=== PATIENT | female | born 2005 | race Caucasian/White ===

== ENCOUNTER 2025-01-11 18:02 | Emergency (ER) | payer OTHER ==
[~2025-01-11] VITALS: Ht 152.4 cm; Wt 66.0 kg
[2025-01-11 18:18] VITALS: O2SAT 98
[2025-01-11 19:52] LABS: BASOPHILS % 0.8 % (0.0-2.0); EOSINOPHILS % 2.6 % (0.0-5.0); HEMATOCRIT. 39.3 % (36.0-48.0); HEMOGLOBIN. 12.9 g/dL (12.0-16.0); LYMPHOCYTES % 38.6 % (20.0-50.0); MEAN CORPUSCULAR HEMOGLOBIN 31.2 pg (28.0-32.0); MEAN CORPUSCULAR HGB CONC 32.8 g/dL (31.0-37.0); MEAN CORPUSCULAR VOLUME 94.9 fL (81.0-99.0); MEAN PLATELET VOLUME 9.2 fl (7.4-10.4); MONOCYTES % 6.4 % (2.0-8.0); NEUTROPHILS % 51.6 % (40.0-76.0); PLATELET 284 x1000/uL (130-400); RED BLOOD CELL COUNT 4.14 mill/uL (4.2-5.4); RED CELL DISTRIBUTION WIDTH 14.3 % (11.6-14.6); WHITE BLOOD COUNT 7.7 x1000/uL (4.5-11.0)
[2025-01-11 20:05] LABS: COLOR URINE YELLOW (YELLOW); GLUCOSE URINE NEGATIVE (NEGATIVE); KETONES URINE NEGATIVE (NEGATIVE); LEUKOCYTE ESTERASE URINE TRACE (NEGATIVE); NITRITE URINE NEGATIVE (NEGATIVE); OCCULT BLOOD URINE 3+ (NEGATIVE); PH URINE 5.5 (4.5-8.0); PROTEIN URINE NEGATIVE (NEGATIVE); SPECIFIC GRAVITY URINE 1.014 (1.005-1.030); UROBILINOGEN URINE 0.2 E.U./dL (0.2-1.0)
[2025-01-11 20:35] LABS: CLARITY URINE SL HAZY (CLEAR)
[2025-01-11 20:36] LABS: BACTERIA URINE 1+; RBC URINE 25-50 /hpf (0-2); SQUAMOUS EPITHELIAL CELL URINE 1+ /lpf (RARE/1+); WBC URINE 0-2 /hpf (0-2)
[2025-01-11 21:20] VITALS: BP 114/75; PULSE 79; RESP 18; TEMP 36.7; O2SAT 98
== END 2025-01-11 21:10 | disposition home or self-care (01) ==
LOC: ER 18:02
DX: O46.8X1 Other antepartum hemorrhage, first trimester (principal); R10.2 Pelvic and perineal pain; Z3A.01 Less than 8 weeks gestation of pregnancy; Z55.6 Problems related to health literacy
CPT/HCPCS: 36415; 76801; 81003; 81025; 84702; 85025; 86850; 86900; 99284

== ENCOUNTER 2025-01-14 12:07 | Emergency (ER) | payer MEDICAID, OTHER ==
[~2025-01-14] VITALS: Ht 152.4 cm; Wt 66.0 kg
[2025-01-14 12:20] VITALS: TEMP 36.9; O2SAT 100
[2025-01-14 14:08] LABS: CHLORIDE 105 mEq/L (98-107); POTASSIUM 3.6 mEq/L (3.5-5.1); SODIUM 138 mEq/L (136-145)
[2025-01-14 14:09] LABS: CALCIUM 8.9 mg/dL (8.7-10.4); CARBON DIOXIDE 23 mEq/L (21-32)
[2025-01-14 14:14] LABS: CREATININE 0.7 mg/dL (0.6-1.0); GLUCOSE 110 mg/dL (70-105); UREA NITROGEN BLOOD 8 mg/dL (9-23)
[2025-01-14 14:41] LABS: HEMATOCRIT 37.9 % (36.0-48.0); HEMOGLOBIN 12.9 g/dL (12.0-16.0); MEAN CORPUSCULAR HEMOGLOBIN 32.2 pg (28.0-32.0); MEAN CORPUSCULAR HGB CONC 33.9 g/dL (31.0-37.0); PLATELET 280 x1000/uL (130-400); RED BLOOD CELL COUNT 3.99 mill/uL (4.2-5.4); RED CELL DISTRIBUTION WIDTH 14.3 % (11.6-14.6); WHITE BLOOD COUNT 6.4 x1000/uL (4.5-11.0)
[2025-01-14 15:24] VITALS: BP 145/82; PULSE 80; RESP 16; O2SAT 99
== END 2025-01-14 15:25 | disposition home or self-care (01) ==
LOC: ER 12:11
DX: O20.0 Threatened abortion (principal); Z3A.01 Less than 8 weeks gestation of pregnancy
CPT/HCPCS: 36415; 80048; 84702; 85027; 99283